=== PATIENT | male | born 1990 | race Caucasian/White ===

== ENCOUNTER 2017-09-29 02:46 | Emergency (ER) | payer SELFPAY ==
[~2017-09-29] VITALS: Ht 185.4 cm; Wt 84.4 kg
[2017-09-29] MEDS ORDERED: methylPREDNISolone 125 MG (Solu-MEDROL) VIAL IVP ONE (03:30)
[2017-09-29 03:33] LABS: BASOPHILS % (AUTO) 0 % (0-10); EOSINOPHILS # (AUTO) 0.5 10^3/uL (0.0-0.3); EOSINOPHILS % (AUTO) 4 % (0-10); HEMATOCRIT 45 % (40-54); HEMOGLOBIN 15.8 G/DL (13.3-17.7); LYMPHOCYTES # (AUTO) 1.5 X 10^3 (1.0-4.0); LYMPHOCYTES % (AUTO) 11 % (12-44); MEAN CORPUSCULAR HEMOGLOBIN 30 PG (25-34); MEAN CORPUSCULAR HGB CONC 35 G/DL (32-36); MEAN CORPUSCULAR VOLUME 85 FL (80-99); MEAN PLATELET VOLUME 10.4 FL (7.4-10.4); MONOCYTES # (AUTO) 0.6 X 10^3 (0.0-1.0); MONOCYTES % (AUTO) 4 % (0-12); NEUTROPHILS # (AUTO) 10.8 X 10^3 (1.8-7.8); NEUTROPHILS % (AUTO) 81 % (42-75); PLATELET COUNT 287 10^3/uL (130-400); RED BLOOD COUNT 5.32 10^6/uL (4.35-5.85); RED CELL DISTRIBUTION WIDTH 12.9 % (10.0-14.5); WHITE BLOOD COUNT 13.4 10^3/uL (4.3-11.0)
[2017-09-29 04:01] LABS: ALANINE AMINOTRANSFERASE 26 U/L (0-55); ALBUMIN 4.7 GM/DL (3.2-4.5); ALKALINE PHOSPHATASE 65 U/L (40-136); BILIRUBIN,TOTAL 1.1 MG/DL (0.1-1.0); BUN/CREATININE RATIO 10; CALCIUM 9.8 MG/DL (8.5-10.1); CARBON DIOXIDE 23 MMOL/L (21-32); CHLORIDE 104 MMOL/L (98-107); GFR ESTIMATED > 60; GLUCOSE 120 MG/DL (70-105); POTASSIUM 3.6 MMOL/L (3.6-5.0); SODIUM 140 MMOL/L (135-145); TOTAL PROTEIN 7.5 GM/DL (6.4-8.2)
[2017-09-29 04:07] LABS: BILIRUBIN,URINE NEGATIVE (NEGATIVE); CLARITY,URINE CLEAR; COLOR,URINE YELLOW; GLUCOSE, URINE (UA) NEGATIVE (NEGATIVE); KETONES,URINE NEGATIVE (NEGATIVE); LEUKOCYTE ESTERASE ,URINE NEGATIVE (NEGATIVE); NITRITE,URINE NEGATIVE (NEGATIVE); PH,URINE 6 (5-9); PROTEIN,URINE NEGATIVE (NEGATIVE); UROBILINOGEN,URINE NORMAL (NORMAL)
[2017-09-29 04:15] LABS: BACTERIA,URINE NEGATIVE /HPF; SQUAMOUS EPITHELIAL CELL,UR RARE /HPF
[2017-09-29] MEDS ORDERED: CLIN300C11 PO (04:30)
[2017-09-29] MEDS ORDERED: PRD10T PO (04:30)
[2017-09-29] MEDS ORDERED: CLINDAMYCIN 600 MG/50 ML IVPB 50 ML IV ONE (04:30)
--- NOTE | 2017-09-29 04:30 | ED General ---
General Chief Complaint: Lower Extremity Stated Complaint: SWELLING IN FOOT, PAIN IN TESTICLES,PENIS Nursing Triage Note: pt verbalized lower rt extremity swollen/red/painful also tip of penis swollen/red/painful Nursing Sepsis Screen: No Definite Risk Allergies and Home Medications Allergies Coded Allergies: No Known Drug Allergies (Unverified , 09/29/17) Past Zroxhtp-Syhfqn-Ndfswd Hx Patient Social History Recent Foreign Travel: No Contact w/Someone Who Travel: No Recent Infectious Disease Expo: No Physical Exam Vital Signs Vital Signs - First Documented 09/29/17 03:00 Temp 97.9 Pulse 116 Resp 18 B/P (MAP) 155/114 (128) Pulse Ox 98 O2 Delivery Room Air Capillary Refill : Less Than 3 Seconds Height, Weight, BMI Height: 6'1.00" Weight: 186lbs. oz. 84.582005va; BMI Method:Stated Progress/Results/Core Measures Suspected Sepsis Recent Fever Within 48 Hours: No Infection Criteria Present: None New/Unexplained Altered Menta: No Sepsis Screen: No Definite Risk SIRS Temperature:97.9 Pulse: 116 Respiratory Rate: 18 Laboratory Tests 09/29/17 03:25: White Blood Count 13.4H Blood Pressure 155 /114 Mean: 128 Laboratory Tests 09/29/17 03:25: Creatinine 1.20, Platelet Count 287, Total Bilirubin 1.1H Results/Orders Lab Results Laboratory Tests Test 09/29/17 03:15 09/29/17 03:25 09/29/17 03:50 Range/Units Group A Streptococcus Screen NEGATIVE NEGATIVE White Blood Count 13.4 H 4.3-11.0 10^3/uL Red Blood Count 5.32 4.35-5.85 10^6/uL Hemoglobin 15.8 13.3-17.7 G/DL Hematocrit 45 40-54 % Mean Corpuscular Volume 85 80-99 FL Mean Corpuscular Hemoglobin 30 25-34 PG Mean Corpuscular Hemoglobin Concent 35 32-36 G/DL Red Cell Distribution Width 12.9 10.0-14.5 % Platelet Count 287 130-400 10^3/uL Mean Platelet Volume 10.4 7.4-10.4 FL Neutrophils (%) (Auto) 81 H 42-75 % Lymphocytes (%) (Auto) 11 L 12-44 % Monocytes (%) (Auto) 4 0-12 % Eosinophils (%) (Auto) 4 0-10 % Basophils (%) (Auto) 0 0-10 % Neutrophils # (Auto) 10.8 H 1.8-7.8 X 10^3 Lymphocytes # (Auto) 1.5 1.0-4.0 X 10^3 Monocytes # (Auto) 0.6 0.0-1.0 X 10^3 Eosinophils # (Auto) 0.5 H 0.0-0.3 10^3/uL Basophils # (Auto) 0.0 0.0-0.1 10^3/uL Sodium Level 140 135-145 MMOL/L Potassium Level 3.6 3.6-5.0 MMOL/L Chloride Level 104 98-107 MMOL/L Carbon Dioxide Level 23 21-32 MMOL/L Anion Gap 13 5-14 MMOL/L Blood Urea Nitrogen 12 7-18 MG/DL Creatinine 1.20 0.60-1.30 MG/DL Estimat Glomerular Filtration Rate > 60 BUN/Creatinine Ratio 10 Glucose Level 120 H 70-105 MG/DL Calcium Level 9.8 8.5-10.1 MG/DL Total Bilirubin 1.1 H 0.1-1.0 MG/DL Aspartate Amino Transf (AST/SGOT) 19 5-34 U/L Alanine Aminotransferase (ALT/SGPT) 26 0-55 U/L Alkaline Phosphatase 65 40-136 U/L Total Protein 7.5 6.4-8.2 GM/DL Albumin 4.7 H 3.2-4.5 GM/DL Monoscreen NEGATIVE NEGATIVE Urine Color YELLOW Urine Clarity CLEAR Urine pH 6 5-9 Urine Specific Dresser 1.015 L 1.016-1.022 Urine Protein NEGATIVE NEGATIVE Urine Glucose (UA) NEGATIVE NEGATIVE Urine Ketones NEGATIVE NEGATIVE Urine Nitrite NEGATIVE NEGATIVE Urine Bilirubin NEGATIVE NEGATIVE Urine Urobilinogen NORMAL NORMAL MG/DL Urine Leukocyte Esterase NEGATIVE NEGATIVE Urine RBC (Auto) NEGATIVE NEGATIVE Urine RBC NONE /HPF Urine WBC NONE /HPF Urine Squamous Epithelial Cells RARE /HPF Urine Crystals NONE /LPF Urine Bacteria NEGATIVE /HPF Urine Casts NONE /LPF Urine Mucus NEGATIVE /LPF Urine Culture Indicated NO My Orders Orders - VEE MCKINLEY DO Saline Lock/Iv-Start (09/29/17 03:13) Cbc With Automated Diff (09/29/17 03:13) Comprehensive Metabolic Panel (09/29/17 03:13) Monotest (09/29/17 03:13) Rapid Strep A Screen (09/29/17 03:13) Ua Culture If Indicated (09/29/17 03:13) Neis Romaine Dna Urine Test (09/29/17 03:13) Chlamydia Trachomatis Urine (09/29/17 03:13) Methylprednisolone Sod Succ (Solu-Medrol (09/29/17 03:30) Clindamycin 600 Mg Iv (1x Dose (09/29/17 04:30) Medications Given in ED Current Medications Medications Dose Ordered Sig/Tammy Route Start Time Stop Time Status Last Admin Dose Admin Methylprednisolone Sodium Succinate 125 mg ONCE ONCE IVP 09/29/17 03:30 09/29/17 03:31 DC 09/29/17 03:35 125 MG Vital Signs/I&O 09/29/17 03:00 Temp 97.9 Pulse 116 Resp 18 B/P (MAP) 155/114 (128) Pulse Ox 98 O2 Delivery Room Air Capillary Refill : Less Than 3 Seconds Blood Pressure Mean: 128 Departure Impression Primary Impression: Cellulitis of right foot Additional Impression: Rash of unknown cause Disposition: HOME, SELF-CARE Condition: Stable Departure-Patient Inst. Referrals: CALEB COE MD (PCP/Family) Primary Care Physician Patient Instructions: Cellulitis (Skin Infection), Adult (DC), Skin Rash (DC) Add. Discharge Instructions: LOTS OF CLEAR LIQUIDS TYLENOL AND MOTRIN NEEDED FOR PAIN FOLLOW UP WITH DR. COE IN 2 DAYS IF NO BETTER, RETURN TO ER IF WORSE All discharge instructions reviewed with patient and/or family. Voiced understanding. Scripts Clindamycin HCl (Clindamycin HCl) 300 Mg Capsule 300 MG PO QID for FOR INFECTION, #40 CAP Prov: VEE MCKINLEY DO 09/29/17 Prednisone (Prednisone) 10 Mg Tab 40 MG PO DAILY, #12 TAB Prov: VEE MCKINLEY DO 09/29/17 VEE MCKINLEY DO Sep 29, 2017 04:30
[2017-09-29 05:03] VITALS: BP 147/100
== END 2017-09-29 05:04 | disposition home or self-care (01) ==
LOC: EDUNIT# 02:46 → ER 02:49
DX: L03.115 Cellulitis of right lower limb (principal)
CPT/HCPCS: 36415; 80053; 81000; 85025; 86308; 87430; 87491; 87591; 96374; 96375

== ENCOUNTER 2022-10-17 22:23 | Emergency (ER) | payer SELFPAY ==
[~2022-10-17] VITALS: Ht 185.5 cm; Wt 92.0 kg
[~2022-10-17 22:23] MED LIST: CLIN-144 PO; PRD10T PO
[2022-10-17] MEDS ORDERED: RX-ONDANSETRON 4 MG ODT (ZOFRAN) PPK #4 PO STA (23:08)
[2022-10-17] MEDS ORDERED: ONDANSETRON 4 MG ORAL DISSOLVE TABLET PO STA (23:08)
--- NOTE | 2022-10-17 23:08 | ED General ---
General Chief Complaint: Psych/Social Disorder Stated Complaint: N/V Nursing Triage Note: PT AMBULATORY TO ROOM WITH PT MOTHER. PT REPORTS EATING HALF OF A WEED GUMMY AND HAS BEEN DRY HEAVING SINCE. PT REPORTS TAKING GUMMY TO HELP WITH HIS ANXIETY, BUT HE IS FEELING EXTREME ANXIETY ON ARRIVAL. PT STATES THAT THE VOMITING AND DRY HEAVES MAKE HIS ANXIETY WORSE. PT IS A&OX4, SPEECH NORMAL ON ARRIVAL Source of Information: Patient Exam Limitations: No Limitations History of Present Illness Date Seen by Provider: Oct 17, 2022 Time Seen by Provider: 22:50 Timing/Duration: 1-3 Hours Severity: Moderate Associated Systoms: Nausea/Vomiting, Shortness of Air, Other (severe anxiety) Allergies and Home Medications Allergies Coded Allergies: No Known Drug Allergies (Unverified , 09/29/17) Patient Home Medication List Home Medication List Reviewed: Yes Clindamycin HCl (Clindamycin HCl) 300 Mg Capsule, 300 MG PO QID Prescribed by: VEE MCKINELY on 09/29/17429 Prednisone (Prednisone) 10 Mg Tab, 40 MG PO DAILY Prescribed by: VEE MCKINLEY on 09/29/170 Review of Systems Review of Systems Constitutional: see HPI EENTM: no symptoms reported Respiratory: no symptoms reported Cardiovascular: no symptoms reported Gastrointestinal: nausea, vomiting Genitourinary: no symptoms reported Musculoskeletal: no symptoms reported Skin: no symptoms reported Psychiatric/Neurological: Anxiety; Denies Headache All Other Systems Reviewed Negative Unless Noted: Yes Past Ovrdaiv-Tvzojn-Ryilmn Hx Past Medical History Surgeries: No Respiratory: No Cardiac: No Neurological: No Genitourinary: No Gastrointestinal: No Musculoskeletal: No Endocrine: No HEENT: No Cancer: No Psychosocial: No Integumentary: No Blood Disorders: No Physical Exam Vital Signs Vital Signs - First Documented 10/17/22 22:30 Temp 36.5 Pulse 107 Resp 20 B/P (MAP) 154/99 (117) Pulse Ox 97 Capillary Refill : Height, Weight, BMI Height: 6'1.00" Weight: 186lbs. oz. 84.855025cg; 26.00 BMI Method:Stated General Appearance: WD/WN, Anxious, Moderate Distress Eyes: Bilateral Eye Normal Inspection, Bilateral Eye PERRL, Bilateral Eye EOMI Progress/Results/Core Measures Suspected Sepsis SIRS Temperature: Pulse: 107 Respiratory Rate: 20 Blood Pressure 154 /99 Mean: 117 Results/Orders Vital Signs/I&O 10/17/22 22:30 Temp 36.5 Pulse 107 Resp 20 B/P (MAP) 154/99 (117) Pulse Ox 97 Capillary Refill : Blood Pressure Mean: 117 Departure Impression Primary Impression: Vomiting Qualified Codes: R11.2 - Nausea with vomiting, unspecified Additional Impression: Anxiety Disposition: 01 HOME, SELF-CARE Condition: Improved Departure-Patient Inst. Decision time for Depature: 23:05 Referrals: CALEB COE MD (PCP/Family) Primary Care Physician Patient Instructions: Anxiety, Adult ED Add. Discharge Instructions: If you have return of nausea and vomiting - take the Ondansetron 4mg tablets every 6-8 hours as needed. (I would avoid taking that same type of Gummy in the future). Google some information on "Mindfulness" techniques to help cope when panic hits. "Breethe" is a cool hussein for anxiety. Also "Headspace" and "Unwind" may be worth looking into. If you have any return of symptoms or worsening - please return to the Emergency Department for re-evaluation. Copy Copies To 1: CALEB COE MD, KATHRYN M MD Oct 17, 2022 23:08
[2022-10-17] MEDS ORDERED: LORazepam 1 MG TABLET PO ONE (23:15)
[2022-10-17 23:50] VITALS: BP 157/102
== END 2022-10-17 23:50 | disposition home or self-care (01) ==
LOC: EDUNIT# 22:23 → ER 22:26
DX: R11.2 Nausea with vomiting, unspecified (principal); F41.9 Anxiety disorder, unspecified; Z28.311 Partially vaccinated for COVID-19